=== PATIENT | male | born 1960 | race Two or more races ===

== ENCOUNTER 2020-03-22 06:45 | Outpatient (CLI) | payer OTHER | END 2020-03-22 07:03 | disposition home or self-care (01) | LOC: LAB 06:45 | PROVIDERS: ATTEND Specialist | DX: J45.998 Other asthma (principal); E11.65 Type 2 diabetes mellitus with hyperglycemia; D64.89 Other specified anemias; N39.0 Urinary tract infection, site not specified; N40.1 Benign prostatic hyperplasia with lower urinary tract symptoms; Z12.11 Encounter for screening for malignant neoplasm of colon; E03.8 Other specified hypothyroidism; K75.81 Nonalcoholic steatohepatitis (NASH); E55.9 Vitamin D deficiency, unspecified; I42.0 Dilated cardiomyopathy ==

== ENCOUNTER 2020-04-13 07:16 | Outpatient (CLI) | payer OTHER | END 2020-04-13 15:18 | disposition home or self-care (01) | LOC: SONOGRAMA 07:16 | PROVIDERS: ATTEND Specialist | DX: K75.81 Nonalcoholic steatohepatitis (NASH) (principal) ==

== ENCOUNTER 2020-06-21 07:30 | Outpatient (CLI) | payer OTHER | END 2020-06-21 07:40 | disposition home or self-care (01) | LOC: LAB 07:30 | PROVIDERS: ATTEND General Practice | DX: D72.829 Elevated white blood cell count, unspecified (principal) ==